=== PATIENT | male | born 1945 | race African-American/Black ===

== ENCOUNTER 2018-02-23 09:02 | Outpatient (CLI) | payer MEDICARE ==
[2018-02-23] MEDS ORDERED: XYLOCAINE TOPICAL 4% TP ONE ×2 (09:48→11:11)
[2018-02-23] MEDS ORDERED: AD OINTMENT TP ONE (11:13)
[2018-02-23] MEDS ORDERED: AD OINTMENT TP SCH (12:00)
== END 2018-02-23 09:03 | disposition home or self-care (01) ==
LOC: WOUND 09:02
PROVIDERS: ATTEND Surgery
DX: L02.612 Cutaneous abscess of left foot (principal); I10 Essential (primary) hypertension; E78.5 Hyperlipidemia, unspecified; F03.90 Unspecified dementia, unspecified severity, without behavioral disturbance, psychotic disturbance, mood disturbance, and anxiety; Z89.412 Acquired absence of left great toe
CPT/HCPCS: 11042; G0463; A6250